=== PATIENT | female | born 1970 | race Caucasian/White ===

== ENCOUNTER 2016-09-04 21:01 | Observation (INO) ==
[2016-09-04] MEDS ORDERED: ONDANSETRON 4 MG/2 ML VIAL IV STA (22:20)
[2016-09-04] MEDS ORDERED: ALUM/MAG/SIMETH/LIDO VISC 1:1 30 ML BOTTLE PO STA (22:20)
--- NOTE | 2016-09-04 22:25 | EKG Report ---
Stationary ECG Study [facility] ER Test Date: 09/04/2016 9:10:37 PM Pat Name: SENAIT SANCHEZ Department: Room: Gender: F Cytotechnologist: Latoya : 1970 Requested by: Joseph Cuenca Order Number: [id number] Shahram MD: LEI KEY Intervals [place] Rate: 92 P: 65 CA: 162 QRS: 62 QRSD: 80 T: 49 QT: 360 QTc: 409 Interpretive Statements SINUS RHYTHM WITH SINUS ARRHYTHMIA Electronically Signed On 09-05-16 10:40:34 CDT by LEI KEY [email or web address]
[2016-09-04 22:33] LABS: Basophils % 0.4 % (0.0-0.8); Eosinophils # 0.1 10*3/uL (0.0-0.87); Eosinophils % 1.1 % (0.00-10.9); Hematocrit 36.8 VOL% (35.7-47.0); Hemoglobin 12.6 GM/DL (12.0-16.0); Immature Granulocytes % 0.2 %; Immature Granulocytes Absolute 0.02 #; Lymphocytes # 3.1 10*3/uL (1.4-4.0); Lymphocytes % 34.8 % (21.3-54.2); Mean Corpuscular HGB Conc 34.2 GM/DL (32-36); Mean Corpuscular Hemoglobin 33 PG (27-34); Mean Corpuscular Volume 95.1 FL (87-102); Mean Platelet Volume 13.1 FL (9.6-12.0); Monocytes # 0.6 10*3/uL (0.11-0.8); Monocytes % 6.6 % (1.7-12.7); Neutrophils # 5.1 10*3/uL (1.4-7.4); Neutrophils % 56.9 % (38.7-73.9); Red Blood Count 3.87 MC/CUMM (3.8-5.5); Red Cell Distribution Width 12.2 % (9.3-17.3); White Blood Count 8.9 T/CUMM (4-12)
[2016-09-04 22:36] LABS: Platelet Count 10 T/CUMM (130-400)
[2016-09-04 22:38] LABS: Partial Thromboplastin Time 26.9 SECS (0-40)
--- NOTE | 2016-09-04 22:38 | XRay Report ---
History is chest pain Comparison 09/22/2011 The heart is normal in size. Hilar contours unchanged The lungs are clear. Impression: No acute pathology seen. PROCEDURE INTERPRETED AT [facility] DEPARTMENT OF RADIOLOGY Final Report Signed by: Dr. Francoise Hernandez
--- NOTE | 2016-09-04 22:44 | Emergency Department Note ---
Arrival - Arrival Chief Complaint: Chest Pain Stated Complaint: sob/chest pain ED Nursing Triage Note: pt states she has been having cp for 2 days and sob. thought it was heartburn but sob has worsened Mode of Arrival: Ambulatory Limitations: No Limitations Source: Patient Time Seen by Provider: 09/04/16 22:20 - History of Present Illness HPI Narrative: This 45-year-old white female presents with 2 days of persistent heartburn, belching, water brash, central chest pain, and in the last 24 hours increasing shortness of breath. The patient has long-standing severe heartburn but because of the shortness of breath she decided to have things evaluated. She has no known cardiac disease. Currently she is not short of breath and appears in no medical distress. Onset (ago): day(s) (Patient presents 2 days post onset of symptoms) Consistency: constant Severity: moderate Date of Last Menstrual Period: 07/2016 Allergies/Adverse Reactions: Allergies Allergy/AdvReac Type Severity Reaction Status Date / Time Penicillins Allergy Mild RASH Verified 03/23/16 22:37 Home Medications: Home Medications Medication Instructions Recorded Confirmed Type Oxycodone HCl/Acetaminophen 1 each PO Q4-6H #25 tablet 03/24/16 03/25/16 Rx [Percocet 7.5-325 mg Tablet] Sulfameth/Trimeth 800-160 Tab 1 tablet PO BID #20 tablet 03/24/16 03/25/16 Rx [Bactrim DS Tab] cephALEXin [Keflex] 500 mg PO Q12HR #20 capsule 03/25/16 Rx Review of System - Review of System 12 point system: reviewed and no additional remarkable complaints except as stated - Review of System Constitutional: Present: as per HPI Respiratory: Present: as per HPI Cardiovascular: Present: as per HPI Gastrointestinal: Present: as per HPI Medical,Surgical,& Family Hx - Medical History Musculoskeletal: History of: Back/Neck Problems (chronic back pain) - Surgical History Reproductive Surgeries: Surgical HX of;: Tubal Ligation - Social History Smoking Status: Never smoker Frequency of Alcohol Use: None Type of Drug Use: None Exam Physical Examination: GENERAL: Well developed, well nourished white female in no acute distress. HEENT: Normocephalic. No trauma. Moist mucous membranes. EOMI. PERRLA. ENT NML NECK: Supple. No adenopathy. CARDIAC: Regular. No murmurs. Heart rate 89 CHEST: Clear to auscultation. No respiratory distress. O2 sat 99% ABDOMEN: Soft. Tender mid epigastrium. Active bowel sounds. EXTREMITIES: No trauma. Normal ROM. No pedal edema. SKIN: No diaphoresis. No rash. NEURO: Alert. Neurologic intact. No focal deficits. Vital Signs: Vital Signs Temperature 98.2 F 09/04/16 22:00 Pulse Rate 77 09/04/16 22:00 Respiratory Rate 16 09/04/16 22:00 Blood Pressure 117/82 09/04/16 22:00 O2 Sat by Pulse Oximetry 99 09/04/16 21:05 Course - Reevaluation(s) Reevaluation #1: Discussed with patient the problems with her platelet count. She states she has had a long-term problem with this but because of lack of health insurance has not been able to follow-up on this. She does not have any history of any significant bleeding episodes although this seems to be a problem for many years without a diagnosis. To this and we will admit for further evaluation treatment - Consultations Consultation #1: Discussed with the hospitalist service who will admit for further evaluation treatment. Results - Labs CBC & BMP: 09/04/16 21:29 09/04/16 21:29 Labs: I reviewed the lab and noted the grossly dangerously depressed platelet count. - Impressions EKG: Sinus rhythm at 92 with normal GA interval and QRS duration. Normal ST segments. Normal EKG. - Diagnostic Findings Procedure: Chest x-ray: image reviewed by me, report reviewed by me (No acute disease.) Disposition Clinical Impression: Thrombocytopenia, Reflux esophagitis Case discussed with: patient, patient's family Disposition: Still a Patient Condition: Stable Time of Disposition: 23:19
[2016-09-04 22:47] LABS: Alanine Aminotransferase 17 U/L (13-56); Albumin 4.1 G/DL (3.4-5.0); Alkaline Phosphatase 94 U/L (45-117); Aspartate Amino Transferase 12 U/L (0-37); Bilirubin,Total < 0.39 MG/DL (0.2-1.0); Blood Urea Nitrogen 11 MG/DL (7-18); Calcium 8.6 MG/DL (8.5-10.1); Glucose 95 MG/DL (74-106); Osmolality,Calculated 281.1 MOS/KG (273-304); Potassium 3.7 MMOL/L (3.5-5.1); Sodium 142 MMOL/L (136-145); Troponin I Only < 0.015 NG/ML (0.00-0.045)
[2016-09-04] MEDS ORDERED: ALUM/MAG/SIMETH/LIDO VISC 1:1 30 ML BOTTLE PO ONE (22:49)
[2016-09-04] MEDS ORDERED: ONDANSETRON 4 MG/2 ML VIAL ONE (22:49)
[2016-09-04 22:51] LABS: Platelet Estimate Decreased
[2016-09-05 00:35] LABS: Barbiturates Screen,Urine Negative (Negative); Benzodiazepines Screen,Urine Negative (Negative); Cannabinoid Screen,Urine Negative (Negative); Opiate Screen,Urine Positive (Negative); Phencyclidine Screen,Urine Negative (Negative)
[2016-09-05 00:39] LABS: Apearance,Urine CLOUDY (Clear); Bilirubin,Urine Negative (Negative); Blood, Urine Negative (Negative); Glucose,Urine (UA) Negative (Negative); Ketones,Urine Negative (Negative); Nitrite,Urine Negative (Negative); Protein,Urine Negative; RBC,Urine <1 /HPF (0-4); Squamous Epithelial Cell,Urine Few /HPF (0-10); Urine Color Yellow (Yellow); Urine Specific Gravity 1.004 (1.001-1.035); Urine Urobilinogen < 2.0 EU/DL (0.2-1.0); WBC,Urine 1 /HPF (0-6)
--- NOTE | 2016-09-05 01:10 | Hospitalist History & Physical ---
Assessment and Plan (1) Thrombocytopenia Status: Acute Current Visit: Yes (2) Chest pain Status: Acute Assessment and plan: Plan for this patient will be admission to the hospital. She will need to be on a monitored bed. I will draw serial cardiac enzymes. But did not feel that it is cardiac in nature at all. I will consult hematology for evaluation of this thrombocytopenia. And begin the workup. This is not a new occurrence apparently. She says she has been dealing with blood issues that for the past 3 years but really does not understand much about it. Current Visit: Yes History of Present Illness Chief complaint: Chest pain History of present illness: Ms. Clark is a 45 year old female with past medical history known for thrombocytopenia chronic pain degenerative disc disease insomnia migraines and anxiety presents to our hospital tonight. Patient's complaining about chest pain. She describes a sharp under her breasts. She states that she feels short of breath at the time. The pain more or less remains in her chest and she was thinking that she was having a heart attack. Patient reports she has been awake for 3 days. She upon questioning and we talk about thrombocytopenia she does admit that approximately 3 years ago she was diagnosed with platelet problem. She saw Dr. Leung on and off for 3 years but has lost her Medicaid. We checked her labs today in she has a platelet count of 10. I was consulted to admit the patient Home Medications Medication Instructions Recorded Confirmed Type Oxycodone HCl/Acetaminophen 1 each PO Q4-6H #25 tablet 03/24/16 03/25/16 Rx [Percocet 7.5-325 mg Tablet] Sulfameth/Trimeth 800-160 Tab 1 tablet PO BID #20 tablet 03/24/16 03/25/16 Rx [Bactrim DS Tab] cephALEXin [Keflex] 500 mg PO Q12HR #20 capsule 03/25/16 Rx Allergies Allergy/AdvReac Type Severity Reaction Status Date / Time Penicillins Allergy Mild RASH Verified 03/23/16 22:37 Medical,Surgical,& Family Hx - Medical History Musculoskeletal: History of: Back/Neck Problems (chronic back pain) Hematology: History of: Blood Disorders - Surgical History Reproductive Surgeries: Surgical HX of;: Tubal Ligation Orthopedic Surgeries: Surgical HX of;: Orthopedic Surgery - Social History Smoking Status: Never smoker Frequency of Alcohol Use: None Type of Drug Use: None 12 point system: reviewed and no additional remarkable complaints except as stated Exam - Constitutional Vitals: Period Temp Pulse Resp BP Sys/Gonzalez Pulse Ox Last 24 Hr 98.2 F-98.4 F 77-89 16-20 117-154/82-95 99 General appearance: normal weight - Head Head exam: Present: normal inspection - Eye Eye exam: Present: EOMI Pupils: Present: MALENA - ENT ENT exam: Present: normal exam - Neck Neck exam: Present: normal inspection - Respiratory Respiratory exam: Present: clear to auscultation bilaterally - Cardiovascular Cardiovascular exam: Present: regular rate and rhythm - GI/Abdominal GI/Abdominal exam: Present: normal bowel sounds - Extremities Exam Extremities exam: Present: normal inspection - Back Exam Back exam: Present: normal inspection - Neurological Exam Neurological exam: Present: alert - Psychiatric Psychiatric exam: Present: normal affect - Skin Skin exam: Present: other (Some bruising appreciated) Results - Labs CBC & BMP: 09/04/16 21:29 09/04/16 21:29
[2016-09-05] MEDS ORDERED: ONDANSETRON 4 MG/2 ML VIAL IV PRN (01:21)
[2016-09-05] MEDS ORDERED: ZALEPLON 5 MG CAPSULE PO PRN (01:21)
[2016-09-05] MEDS: oxyCODONE/ACETAMINOPHEN 5-325 MG TABLET PO PRN ×2 (02:45→08:32)
--- NOTE | 2016-09-05 07:21 | Ultrasound Report ---
US abdomen Indication: Thrombocytopenia. ULTRASOUND ABDOMEN, COMPLETE Comparison: None Findings: Liver: Normal size and smooth contour. No focal mass. Gallbladder: Unremarkable Common bile duct: 4 mm Aorta: No aneurysm IVC: Widely patent Spleen: Minimally enlarged, volume 462 cc. No focal lesion. Pancreas: Unremarkable Right kidney: 12.8 cm length. No mass, cyst, calcification or obstruction Left kidney: 11.2 cm length. No mass, cyst, calcification or obstruction Impression: Mild splenomegaly. PROCEDURE INTERPRETED AT [facility] DEPARTMENT OF RADIOLOGY Final Report Signed by: All Blackmon M.D.
[2016-09-05 07:39] LABS: Albumin 3.6 G/DL (3.4-5.0); Bilirubin,Total 0.9 MG/DL (0.2-1.0); Calcium 8.5 MG/DL (8.5-10.1); Potassium 3.7 MMOL/L (3.5-5.1); Total Protein 6.4 G/DL (6.4-8.3)
[2016-09-05 08:00] VITALS: BP 101/65
[2016-09-05 08:05] LABS: PT Patient Result 10.3 SECS
[2016-09-05 08:39] LABS: Basophils % 0.6 % (0.0-0.8); Eosinophils # 0.1 10*3/uL (0.0-0.87); Eosinophils % 1.7 % (0.00-10.9); Hemoglobin 12.3 GM/DL (12.0-16.0); Immature Granulocytes % 0.3 %; Immature Granulocytes Absolute 0.02 #; Lymphocytes # 2.6 10*3/uL (1.4-4.0); Lymphocytes % 35.7 % (21.3-54.2); Mean Corpuscular HGB Conc 34.2 GM/DL (32-36); Mean Corpuscular Hemoglobin 33 PG (27-34); Mean Corpuscular Volume 95.7 FL (87-102); Monocytes # 0.5 10*3/uL (0.11-0.8); Monocytes % 6.9 % (1.7-12.7); Neutrophils % 54.8 % (38.7-73.9); Red Blood Count 3.76 MC/CUMM (3.8-5.5); Red Cell Distribution Width 12.3 % (9.3-17.3); White Blood Count 7.2 T/CUMM (4-12)
[2016-09-05 08:57] LABS: Platelet Count 182 T/CUMM (130-400)
[2016-09-05] MEDS ORDERED: PANTOPRAZOLE 40 MG TABLET PO SCH (09:00)
--- NOTE | 2016-09-05 09:14 | Oncology Consult Note ---
History of Present Illness Chief complaint: Probable lab error History of present illness: Ms. Clark is a 45 year old female who is reported to have a platelet count of 10,000 yesterday. Early this morning a CBC was ordered and the results canceled. Subsequently, the patient has been found to have aPlatelet count of 182,000 with a hemoglobin of 12.3 and a white cell count of 7200. On questioning the patient she has had no recent respiratory tract infections. She has had no cough or sputum production. She has had no bone or muscle or joint aches or pains. The only 2 medications that she takes are Prilosec and narcotic pain medication. I am going to check the patient for petechiae, which she should have if her platelet count is actually 10,000. The lab is reporting that this patient's blood counts are not accurate because of clumping. She may need to be evaluated for cryoglobulins or cold agglutinins. On chemistry package, her globulins are 2.8 with an albumin of 3.6 and the rest of her comprehensive metabolic profile which was done on September 04 reveals normal liver enzymes and total bilirubin. I am doubtful that this is significant thrombocytopenia. It may be that she has been on medication that could do this as well. Please reconsult me if she actually has thrombocytopenia or other than this being lab error. At this point I have examined the patient. - Medical History Allergies: Penicillin Psychological: History of: Anxiety Disorders Gastrointestinal: History of: GERD Musculoskeletal: History of: Back/Neck Problems (chronic back pain) Hematology: History of: Blood Disorders - Surgical History Reproductive Surgeries: Surgical HX of;: Tubal Ligation Orthopedic Surgeries: Surgical HX of;: Orthopedic Surgery - Social History Smoking Status: Never smoker Frequency of Alcohol Use: None Type of Drug Use: None Family History: Negative for blood dyscrasias ROS Gen.: Eyes: No history of chronic disease, infections or visual loss. ENT: No history of chronic infections, epistaxis, chronic sore throat Lungs: No history of asthma, emphysema, hemoptysis, chronic pleurisy or long- term or chronic infections Cardiovascular: No history of angina, coronary artery disease, congestive heart failure, cardiovascular surgery or DVT/VTE GI: No history of upper or lower GI bleeding, melena, dysphagia, odynophagia, liver disease, gallbladder disease or pancreatic disease. : No history of kidney stones, chronic kidney infections or hematuria. Musculoskeletal: History of chronic back pain. Neurologic: No history of seizures, convulsions or paralysis. Psychiatric: History of anxiety. Lymphatic: No history of significant or long-term lymphadenopathy Hematologic: I did not elicit a history of bleeding disorders or blood dyscrasias or long-term elevation or depression white cell count or petechiae. Skin: No history of chronic skin infections or rashes or significant skin lesions. Physical examination: General: She is well-developed well-nourished and in no acute distress. Eyes: Lids and conjunctive are normal. ENT: Her trachea is midline and she has no neck masses her hearing is normal and her oral mucosa and pharynx are normal. Lungs: Breath sounds are normal without rubs, rales or rhonchi. There is symmetrical unlabored chest motion with respiration. Cardiovascular: Her heart rhythm is regular without murmur, gallop or rub. There is no jugular venous distention, clubbing, cyanosis or edema. Abdomen: She has no abdominal masses, organomegaly, distention, tenderness or ascites. Specifically I cannot palpate her spleen. Musculoskeletal: There is no focal muscle atrophy or bone or joint deformity. Neurologic: Cranial nerves II through XII are intact. There are no focal neurologic deficits. Skin: A thorough examination for any petechiae does not reveal any significant bruising or petechiae. Prilosec can occasionally cause thrombocytopenia. In addition, there is a remote possibility of collagen vascular disease. I doubt this however. I think that this is purely lab error. I am uncertain of why this patient's platelets are clumping. Cryoglobulins or cold agglutinins could possibly produce this or some other medication might. There was indication on the initial CBC that the patient had platelet clumping and I would suggest that in the future this should result in a repeat CBC in the emergency room before admitting the patient if the patient is not actively bleeding, does not have petechiae and splenomegaly is not palpable. Home Medications Medication Instructions Recorded Confirmed Type Oxycodone HCl/Acetaminophen 1 each PO Q4-6H #25 tablet 03/24/16 03/25/16 Rx [Percocet 7.5-325 mg Tablet] Cyclobenzaprine [Flexeril] 5 mg PO TID #30 tablet 09/05/16 Rx Ketorolac Tab [Toradol Tab] 10 mg PO Q4H PRN #30 tablet 09/05/16 Rx Zolpidem [Ambien] 10 mg PO BEDTIME #30 tablet 09/05/16 Rx Allergies Allergy/AdvReac Type Severity Reaction Status Date / Time Penicillins Allergy Mild RASH Verified 03/23/16 22:37 Medical,Surgical,& Family Hx - Medical History Psychological: History of: Anxiety Disorders Gastrointestinal: History of: GERD Musculoskeletal: History of: Back/Neck Problems (chronic back pain) Hematology: History of: Blood Disorders - Surgical History Reproductive Surgeries: Surgical HX of;: Tubal Ligation Orthopedic Surgeries: Surgical HX of;: Orthopedic Surgery - Social History Smoking Status: Never smoker Frequency of Alcohol Use: None Type of Drug Use: None Exam - Constitutional Vitals: Period Temp Pulse Resp BP Sys/Gonzalez Pulse Ox Last 24 Hr 97.1 F-98.3 F 69-87 16-18 101-137/65-84 97-99 Results - Labs CBC & BMP: 09/05/16 09:27 09/05/16 06:33 Quality Measures - VTE Contraindication to Pharmacological VTE Prophylaxis: Thrombocytopenia
[2016-09-05 09:35] LABS: Eosinophils 4 % (0-10); Hypochromasia 1+; Lymphocytes 37 % (20-55); Platelet Estimate Normal; Segmented Neutrophils 55 % (50-85); Total Cells Counted 100
[2016-09-05] MEDS ORDERED: KETOROLAC 30 MG/1 ML VIAL IV ONE (09:42)
[2016-09-05 09:44] LABS: Basophils # 0.1 10*3/uL (0.0-0.2); Basophils % 0.7 % (0.0-0.8); Eosinophils # 0.1 10*3/uL (0.0-0.87); Eosinophils % 1.9 % (0.00-10.9); Hematocrit 36.9 VOL% (35.7-47.0); Hemoglobin 12.6 GM/DL (12.0-16.0); Immature Granulocytes % 0.4 %; Immature Granulocytes Absolute 0.03 #; Lymphocytes % 26.8 % (21.3-54.2); Mean Corpuscular HGB Conc 34.1 GM/DL (32-36); Mean Corpuscular Hemoglobin 33 PG (27-34); Mean Corpuscular Volume 96.3 FL (87-102); Mean Platelet Volume 10.4 FL (9.6-12.0); Monocytes # 0.6 10*3/uL (0.11-0.8); Monocytes % 7.4 % (1.7-12.7); Neutrophils # 4.6 10*3/uL (1.4-7.4); Neutrophils % 62.8 % (38.7-73.9); Red Blood Count 3.83 MC/CUMM (3.8-5.5); Red Cell Distribution Width 12.5 % (9.3-17.3); White Blood Count 7.4 T/CUMM (4-12)
--- NOTE | 2016-09-05 09:46 | Discharge Summary ---
Hospital Course - Hospital Course Hospital Course: Ms. Clark was admitted to the hospital overnight for observation of chest pain and a workup of thrombocytopenia. Her initial platelet count was 10,000. Her repeat CBC shows a normal platelet count of 182,000. This has been confirmed with the lab. The first result be lab error secondary to clumping. At this time the patient is asymptomatic and does not have any petechial hemorrhaging or spontaneous bleeding. She presented to the emergency department initially for chest pain which is resolved. Troponins were negative. The patient is being discharged home to follow-up as an outpatient with her primary care physician. No further recommendations at this time. The patient was seen in consultation by Dr. Cohn. He recommended further testing if she truly had thrombocytopenia in the future. Patient was given a prescription for Ambien, Toradol, Flexeril upon discharge. - Time spent with patient Time with patient DS: Less than 30 minutes Diagnosis - Discharge Diagnosis (1) lab error Status: Acute (2) Thrombocytopenia Status: Ruled-out (3) Chest pain Status: Resolved (4) Chronic pain disorder Status: Chronic Discharge Plan - Discharge Data Disposition: Disch To Home/Self Care Condition at Discharge: Stable Discharge Diet: advance to your usual diet Activity: resume usual activities as tolerated Hygiene: no restrictions Weight Bearing at Discharge: full weight bearing Driving: no restrictions - Discharge Medications New Cyclobenzaprine [Flexeril] 5 mg PO TID #30 tablet Ketorolac Tab [Toradol Tab] 10 mg PO Q4H PRN #30 tablet PRN Reason: Pain Zolpidem [Ambien] 10 mg PO BEDTIME #30 tablet Continue Oxycodone HCl/Acetaminophen [Percocet 7.5-325 mg Tablet] 1 each PO Q4-6H #25 tablet Discontinued Sulfameth/Trimeth 800-160 Tab [Bactrim DS Tab] 1 tablet PO BID #20 tablet cephALEXin [Keflex] 500 mg PO Q12HR #20 capsule - Follow Up or Referral - Forms/Instructions Exam - Constitutional Vitals: Period Temp Pulse Resp BP Sys/Gonzalez Pulse Ox Last 24 Hr 97.1 F-98.3 F 69-87 16-18 101-137/65-84 97-99 General appearance: no acute distress Exam: Constitutional System: no distress. No tremulousness. Head: Normocephalic, atraumatic. Ears, Nose and Throat System: No pain or tenderness. No epistaxis or discharge Eyes System: Pupils equal, round, and reactive. Extraocular muscles intact. Neck: Supple, without adenopathy, No jugular venous distention. No thyromegaly, neck mass, or prior surgery apparent. Respiratory System: Chest clear to auscultation. Cardiovascular System: Heart with regular rate and rhythm. No murmur. GI System: Abdomen soft, nontender. Normo active bowel sounds present. Musculoskeletal System: limbs with no pedal edema. Full distal pulses. Neurological System: No discernable sensory deficit. No aphasia Psychiatric System: Conversation is rational Discharge Results Procedures and tests throughout hospitalization: Pending Orders 09/05/16 09:26 CBC [Comp Blood Count Auto Diff] Stat 09/05/16 09:27 Peripheral Blood Smear Profile Routine 09/05/16 09:42 Troponin I Only Stat Labs on day of discharge: Labs from last 24 hours 09/05/16 09/05/16 09/05/16 07:50 07:50 07:50 WBC 7.2 RBC 3.76 L Hgb 12.3 Hct 36.0 MCV 95.7 MCH 33 MCHC 34.2 RDW 12.3 Plt Count 182 D MPV 11.0 Neut % (Auto) 54.8 Lymph % (Auto) 35.7 Rooks % (Auto) 6.9 Eos % (Auto) 1.7 Baso % (Auto) 0.6 LUCs % Neut # (Auto) 4.0 Lymph # (Auto) 2.6 Rooks # (Auto) 0.5 Eos # (Auto) 0.1 Baso # (Auto) 0.0 LUCs # Total Counted 100 Immature Gran % 0.3 Nucleated RBC % 0.0 Immature Gran # 0.02 Segmented Neutrophils 55 Band Neutrophils Lymphocytes 37 Monocytes 4 Eosinophils 4 Basophils Metamyelocytes Myelocytes Promyelocytes Nucleated RBCs Nucleated RBCs # 0.00 Hypersegmented Neuts Vacuolated Neuts Atypical Lymphocytes Atypic/Reactive Lymphs Blast Cells Plasma Cells Smudge Cells Toxic Granulation Dohle Bodies Platelet Estimate Normal Giant Platelets Platelet Satelliting Immature Plt Fraction RBC Morphology Polychromasia Hypochromasia 1+ Poikilocytosis Basophilic Stippling Anisocytosis Microcytosis Macrocytosis Spherocytes Pappenheimer Bodies Sickle Cells Target Cells Tear Drop Cells Ovalocytes Oval Macrocytes Stomatocytes Helmet Cells Malloy-Sylvester Bodies Cony Cells Elliptocytes Acanthocytes (Spur) Rouleaux Schistocytes Morphology Comment INR 1.0 PT Patient/Control Mix 10.3 Fibrinogen 217 Sodium Potassium Chloride Carbon Dioxide Anion Gap BUN Creatinine GFR Calculation BUN/Creatinine Ratio Glucose Calculated Osmolality Calcium Total Bilirubin AST ALT Alkaline Phosphatase Total Protein Albumin Globulin Albumin/Globulin Ratio 09/05/16 09/05/16 06:33 06:33 WBC Cancelled RBC Cancelled Hgb Cancelled Hct Cancelled MCV Cancelled MCH Cancelled MCHC Cancelled RDW Cancelled Plt Count Cancelled MPV Cancelled Neut % (Auto) Cancelled Lymph % (Auto) Cancelled Rooks % (Auto) Cancelled Eos % (Auto) Cancelled Baso % (Auto) Cancelled LUCs % Cancelled Neut # (Auto) Cancelled Lymph # (Auto) Cancelled Rooks # (Auto) Cancelled Eos # (Auto) Cancelled Baso # (Auto) Cancelled LUCs # Cancelled Total Counted Cancelled Immature Gran % Cancelled Nucleated RBC % Cancelled Immature Gran # Cancelled Segmented Neutrophils Cancelled Band Neutrophils Cancelled Lymphocytes Cancelled Monocytes Cancelled Eosinophils Cancelled Basophils Cancelled Metamyelocytes Cancelled Myelocytes Cancelled Promyelocytes Cancelled Nucleated RBCs Cancelled Nucleated RBCs # Cancelled Hypersegmented Neuts Cancelled Vacuolated Neuts Cancelled Atypical Lymphocytes Cancelled Atypic/Reactive Lymphs Cancelled Blast Cells Cancelled Plasma Cells Cancelled Smudge Cells Cancelled Toxic Granulation Cancelled Dohle Bodies Cancelled Platelet Estimate Cancelled Giant Platelets Cancelled Platelet Satelliting Cancelled Immature Plt Fraction Cancelled RBC Morphology Cancelled Polychromasia Cancelled Hypochromasia Cancelled Poikilocytosis Cancelled Basophilic Stippling Cancelled Anisocytosis Cancelled Microcytosis Cancelled Macrocytosis Cancelled Spherocytes Cancelled Pappenheimer Bodies Cancelled Sickle Cells Cancelled Target Cells Cancelled Tear Drop Cells Cancelled Ovalocytes Cancelled Oval Macrocytes Cancelled Stomatocytes Cancelled Helmet Cells Cancelled Malloy-Sylvester Bodies Cancelled Cony Cells Cancelled Elliptocytes Cancelled Acanthocytes (Spur) Cancelled Rouleaux Cancelled Schistocytes Cancelled Morphology Comment Cancelled INR PT Patient/Control Mix Fibrinogen Sodium 143 Potassium 3.7 Chloride 107 Carbon Dioxide 26 Anion Gap 13.7 BUN 10 Creatinine 0.60 GFR Calculation 111 BUN/Creatinine Ratio 16.00 Glucose 83 Calculated Osmolality 282.0 Calcium 8.5 Total Bilirubin 0.90 AST 9 ALT 16 Alkaline Phosphatase 79 Total Protein 6.4 Albumin 3.6 Globulin 2.8 Albumin/Globulin Ratio 1.2 DS: Provider Date of admission: 09/05/16 01:21 Primary care physician: . No PCP Attending physician on admission: Petra Quiroga MD Consults: 09/05/16 02:47 Consult to Dietitian [CONS] Routine Reason for Dietitian: Dietary Consult Discharging clinician: Petra Quiroga MD Expected date of discharge: 09/05/16
[2016-09-05 09:59] LABS: Platelet Count 211 T/CUMM (130-400)
[2016-09-05 10:16] LABS: Eosinophils 2 % (0-10); Hypochromasia 1+; Lymphocytes 33 % (20-55); Segmented Neutrophils 57 % (50-85); Total Cells Counted 100
[2016-09-05 10:18] LABS: Platelet Estimate Normal
[2016-09-05 10:31] LABS: Mean Corpuscular Hemoglobin 33 PG (27-34)
[2016-09-05 10:32] LABS: Eosinophils # 0.1 10*3/uL (0.0-0.87)
[2016-09-05 10:35] LABS: Hemoglobin 12.6 GM/DL (12.0-16.0); Red Blood Count 3.83 MC/CUMM (3.8-5.5); White Blood Count 7.4 T/CUMM (4-12)
[2016-09-05 10:36] LABS: Hematocrit 36.9 VOL% (35.7-47.0); Mean Corpuscular HGB Conc 34.1 GM/DL (32-36); Mean Corpuscular Volume 96.3 FL (87-102); Red Cell Distribution Width 12.5 % (9.3-17.3)
[2016-09-05 10:37] LABS: Mean Platelet Volume 10.4 FL (9.6-12.0); Neutrophils % 62.8 % (38.7-73.9); Platelet Count 211 T/CUMM (130-400)
[2016-09-05 10:38] LABS: Basophils % 0.7 % (0.0-0.8); Eosinophils % 1.9 % (0.00-10.9); Lymphocytes % 26.8 % (21.3-54.2); Monocytes % 7.4 % (1.7-12.7)
[2016-09-05 10:39] LABS: Immature Granulocytes % 0.4 %; Monocytes # 0.6 10*3/uL (0.11-0.8); Neutrophils # 4.6 10*3/uL (1.4-7.4)
[2016-09-05 10:40] LABS: Basophils # 0.1 10*3/uL (0.0-0.2); Immature Granulocytes Absolute 0.03 #
[2016-09-05 10:52] LABS: Eosinophils 2 % (0-10); Lymphocytes 33 % (20-55); Segmented Neutrophils 57 % (50-85); Total Cells Counted 100
[2016-09-05 10:53] LABS: Hypochromasia 1+; Platelet Estimate Normal
== END 2016-09-05 11:30 | disposition home or self-care (01) | DRG 313 ==
LOC: N.ED 21:01 → N.EDINP 09-05 01:21 → INTOOBSV 09-05 01:21 → N.TELES 09-05 02:05
PROVIDERS: ADMIT Family Medicine; ATTEND Family Medicine

== ENCOUNTER 2018-04-01 15:31 | Observation (INO) ==
[2018-04-01] MEDS ORDERED: MORPHINE 4 MG/1 ML VIAL IV STA ×2 (17:06→19:37)
[2018-04-01] MEDS ORDERED: ALBUTEROL/IPRATROPIUM 3 ML NEB RESP TX STA (17:06)
[2018-04-01] MEDS ORDERED: ONDANSETRON 4 MG/2 ML VIAL IV STA (17:06)
[2018-04-01] MEDS ORDERED: ASPIRIN 325 MG TABLET PO STA (17:06)
[2018-04-01] MEDS ORDERED: methylPREDNISolone SOD SUC 125 MG/2 ML VIAL IV STA (17:06)
[2018-04-01] MEDS ORDERED: NITROGLYCERIN 2% OINT 1 INCH/GM PACK TOP STA (17:06)
[2018-04-01 17:31] LABS: INR 0.9; PT Patient Result 9.9 SECS
[2018-04-01 17:44] LABS: Alanine Aminotransferase 38 U/L (13-56); Albumin 4.2 G/DL (3.4-5.0); Alkaline Phosphatase 77 U/L (45-117); Aspartate Amino Transferase 27 U/L (0-37); Bilirubin,Total < 0.39 MG/DL (0.2-1.0); Blood Urea Nitrogen 9 MG/DL (7-18); Calcium 8.7 MG/DL (8.5-10.1); Glucose 113 MG/DL (74-106); Osmolality,Calculated 274.7 MOS/KG (273-304); Potassium 3.9 MMOL/L (3.5-5.1); Sodium 138 MMOL/L (136-145); Total Protein 8.1 G/DL (6.4-8.3); Troponin I < 0.015 NG/ML (0.00-0.045)
[2018-04-01 17:47] LABS: Basophils # 0.1 10*3/uL (0.0-0.2); Basophils % 0.6 % (0.0-0.8); Eosinophils % 0.5 % (0.00-10.9); Hematocrit 40.1 VOL% (35.7-47.0); Immature Granulocytes % 0.4 %; Immature Granulocytes Absolute 0.03 #; Lymphocytes # 1.9 10*3/uL (1.4-4.0); Lymphocytes % 24.5 % (21.3-54.2); Mean Corpuscular HGB Conc 34.9 GM/DL (32-36); Mean Corpuscular Hemoglobin 32 PG (27-34); Mean Platelet Volume 10.5 FL (9.6-12.0); Monocytes # 0.4 10*3/uL (0.11-0.8); Monocytes % 5.6 % (1.7-12.7); Neutrophils # 5.4 10*3/uL (1.4-7.4); Neutrophils % 68.4 % (38.7-73.9); Platelet Count 155 T/CUMM (130-400); Red Blood Count 4.36 MC/CUMM (3.8-5.5); Red Cell Distribution Width 11.4 % (9.3-17.3); White Blood Count 7.8 T/CUMM (4-12)
[2018-04-01 17:51] LABS: Platelet Estimate Normal
[2018-04-01 18:28] LABS: Apearance,Urine CLEAR (Clear); Bilirubin,Urine Negative (Negative); Blood, Urine Small mg/dL (Negative); Glucose,Urine (UA) Negative (Negative); Ketones,Urine Negative (Negative); Mucus,Urine Occasional /LPF (Occasional); Nitrite,Urine Negative (Negative); Protein,Urine Negative; RBC,Urine 1 /HPF (0-4); Squamous Epithelial Cell,Urine Occasional /HPF (0-10); Urine Color Straw (Yellow); Urine Specific Gravity 1.006 (1.001-1.035); Urine Urobilinogen < 2.0 EU/DL (0.2-1.0); WBC,Urine 1 /HPF (0-6)
[2018-04-01 18:36] LABS: Barbiturates Screen,Urine Negative (Negative); Benzodiazepines Screen,Urine Negative (Negative); Cannabinoid Screen,Urine Negative (Negative); Opiate Screen,Urine Positive (Negative); Phencyclidine Screen,Urine Negative (Negative)
[2018-04-01] MEDS ORDERED: DOCUSATE SODIUM 100 MG CAPSULE PO PRN (20:23)
[2018-04-01] MEDS ORDERED: ZALEPLON 5 MG CAPSULE PO PRN (20:23)
[2018-04-01] MEDS ORDERED: ENOXAPARIN 40 MG/0.4 ML SYRINGE SUBCUT SCH (21:00)
[2018-04-02 01:46] LABS: Basophils % 0.1 % (0.0-0.8); Hematocrit 38.7 VOL% (35.7-47.0); Hemoglobin 13.3 GM/DL (12.0-16.0); Immature Granulocytes % 0.3 %; Immature Granulocytes Absolute 0.03 #; Lymphocytes # 0.7 10*3/uL (1.4-4.0); Lymphocytes % 6.9 % (21.3-54.2); Mean Corpuscular HGB Conc 34.4 GM/DL (32-36); Mean Corpuscular Hemoglobin 32 PG (27-34); Mean Corpuscular Volume 94.2 FL (87-102); Mean Platelet Volume 11.3 FL (9.6-12.0); Monocytes # 0.1 10*3/uL (0.11-0.8); Monocytes % 0.8 % (1.7-12.7); Neutrophils # 8.7 10*3/uL (1.4-7.4); Neutrophils % 91.9 % (38.7-73.9); Platelet Count 126 T/CUMM (130-400); Red Blood Count 4.11 MC/CUMM (3.8-5.5); Red Cell Distribution Width 11.6 % (9.3-17.3); White Blood Count 9.5 T/CUMM (4-12)
[2018-04-02] MEDS ORDERED: diphenhydrAMINE CAP 25 MG CAPSULE PO ONE (02:00)
[2018-04-02 02:07] LABS: Troponin I < 0.015 NG/ML (0.00-0.045)
[2018-04-02 02:14] LABS: Calcium 9.2 MG/DL (8.5-10.1); Osmolality,Calculated 277.7 MOS/KG (273-304); Potassium 4.2 MMOL/L (3.5-5.1); Risk Ratio 4.62; Thyroid Stimulating Hormone 0.142 uIU/ml (0.358-3.74); VLDL CHOLESTEROL 29.4 MG/DL
[2018-04-02 03:44] LABS: Eosinophils 1 % (0-10); Hypochromasia Slight; Lymphocytes 5 % (20-55); Platelet Estimate Decreased; Segmented Neutrophils 94 % (50-85); Total Cells Counted 100
[2018-04-02 06:59] LABS: Troponin I < 0.015 NG/ML (0.00-0.045)
[2018-04-02] MEDS ORDERED: MAGNESIUM SULF RIDER 4 GM in PREMIX 1 EACH IV PRN (07:29)
[2018-04-02] MEDS ORDERED: MAGNESIUM SULF RIDER 2 GM in PREMIX 1 EACH IV PRN (07:29)
[2018-04-02] MEDS ORDERED: ONDANSETRON 4 MG/2 ML VIAL IV PRN (07:52)
[2018-04-02] MEDS ORDERED: PANTOPRAZOLE 40 MG TABLET PO SCH (09:00)
[2018-04-02] MEDS ORDERED: ASPIRIN EC 325 MG TABLET PO SCH (09:00)
[2018-04-02 11:44] VITALS: BP 117/91
== END 2018-04-02 14:45 | disposition home or self-care (01) ==
LOC: UNDODISOB → N.EDINP 15:31 → N.ED 15:31 → N.2E 20:00 → UNDODISOB 04-02 14:37
PROVIDERS: ADMIT Internal Medicine; ATTEND Internal Medicine

== ENCOUNTER 2019-04-06 09:24 | Observation (INO) ==
[2019-04-06] MEDS ORDERED: ASPIRIN 325 MG TABLET PO STA (09:59)
[2019-04-06] MEDS ORDERED: ALUM/MAG/SIMETH/LIDO VISC 1:1 30 ML BOTTLE PO STA (09:59)
[2019-04-06 10:15] LABS: Basophils % 0.4 % (0.0-0.8); Eosinophils % 0.2 % (0.00-10.9); Hematocrit 42.2 VOL% (35.7-47.0); Hemoglobin 14.4 GM/DL (12.0-16.0); Immature Granulocytes % 0.4 %; Immature Granulocytes Absolute 0.04 #; Lymphocytes # 1.5 10*3/uL (1.4-4.0); Lymphocytes % 15.1 % (21.3-54.2); Mean Corpuscular HGB Conc 34.1 GM/DL (32-36); Mean Corpuscular Volume 93.8 FL (87-102); Mean Platelet Volume 12.3 FL (9.6-12.0); Monocytes % 5.4 % (1.7-12.7); Neutrophils % 78.5 % (38.7-73.9); Platelet Count 119 T/CUMM (130-400); Red Cell Distribution Width 11.6 % (9.3-17.3); White Blood Count 10.2 T/CUMM (4-12)
[2019-04-06 10:31] LABS: PT Patient Result 10.4 SECS (9.6-12.2); Partial Thromboplastin Time 21.4 SECS (20.8-36.0)
[2019-04-06 10:32] LABS: Albumin 4.2 G/DL (3.4-5.0); Bilirubin,Total 0.6 MG/DL (0.2-1.0); Calcium 8.8 MG/DL (8.5-10.1); Osmolality,Calculated 276.7 MOS/KG (273-304); Total Protein 7.6 G/DL (6.4-8.3)
[2019-04-06 10:51] LABS: Platelet Estimate Adequate
[2019-04-06 12:05] LABS: Apearance,Urine Hazy (Clear); Bilirubin,Urine Negative (Negative); Blood, Urine NEGATIVE (Negative); Glucose,Urine (UA) Negative (Negative); Ketones,Urine Negative (Negative); Mucus,Urine Many /LPF (Occasional); Nitrite,Urine Negative (Negative); Protein,Urine 30 MG/DL; RBC,Urine 3 /HPF (0-4); Squamous Epithelial Cell,Urine Occasional /HPF (0-10); Urine Color Yellow (Yellow); WBC,Urine 1 /HPF (0-6)
[2019-04-06 12:06] LABS: Urine Urobilinogen 0.2 EU/DL (0.2-1.0)
[2019-04-06 12:09] LABS: Barbiturates Screen,Urine Negative (Negative); Benzodiazepines Screen,Urine Negative (Negative); Cannabinoid Screen,Urine Negative (Negative); Opiate Screen,Urine Positive (Negative); Phencyclidine Screen,Urine Negative (Negative)
[2019-04-06] MEDS ORDERED: ONDANSETRON 4 MG/2 ML VIAL IV PRN (15:51)
[2019-04-06] MEDS ORDERED: SODIUM CHLORIDE 0.45% 1,000 ML IV SCH (16:00)
[2019-04-06] MEDS ORDERED: busPIRone 5 MG TABLET PO PRN (16:01)
[2019-04-06] MEDS ORDERED: ZALEPLON 5 MG CAPSULE PO PRN (18:19)
[2019-04-06] MEDS: CARVEDILOL 3.125 MG TABLET PO SCH (20:33)
[2019-04-06] MEDS: DOCUSATE SODIUM 100 MG CAPSULE PO SCH (20:33)
[2019-04-06] MEDS: FAMOTIDINE 20 MG TABLET PO SCH (20:33)
[2019-04-06] MEDS ORDERED: ROSUVASTATIN 20 MG TABLET PO SCH (21:00)
[2019-04-07] MEDS: ACETAMINOPHEN 325 MG TABLET PO PRN ×2 (01:20→08:13)
[2019-04-07 06:06] LABS: Basophils % 0.6 % (0.0-0.8); Eosinophils # 0.1 10*3/uL (0.0-0.87); Hematocrit 38.4 VOL% (35.7-47.0); Hemoglobin 13.2 GM/DL (12.0-16.0); Immature Granulocytes % 0.2 %; Immature Granulocytes Absolute 0.01 #; Mean Corpuscular HGB Conc 34.4 GM/DL (32-36); Mean Corpuscular Volume 94.6 FL (87-102); Mean Platelet Volume 10.3 FL (9.6-12.0); Monocytes % 7.9 % (1.7-12.7); Neutrophils % 51.3 % (38.7-73.9); Platelet Count 166 T/CUMM (130-400); Red Blood Count 4.06 MC/CUMM (3.8-5.5); Red Cell Distribution Width 11.7 % (9.3-17.3); White Blood Count 5.2 T/CUMM (4-12)
[2019-04-07 06:28] LABS: Albumin 3.7 G/DL (3.4-5.0); Bilirubin,Total 1.7 MG/DL (0.2-1.0); Calcium 8.2 MG/DL (8.5-10.1); Osmolality,Calculated 274.7 MOS/KG (273-304); Risk Ratio 5.47; VLDL CHOLESTEROL 21.4 MG/DL
[2019-04-07] MEDS ORDERED: ASPIRIN EC 81 MG TABLET PO SCH (09:00)
[2019-04-07] MEDS ORDERED: PANTOPRAZOLE 40 MG TABLET PO SCH (09:00)
[2019-04-07 12:20] VITALS: BP 126/83
[2019-04-07] MEDS: CARVEDILOL 3.125 MG TABLET PO SCH (14:41)
[2019-04-07] MEDS: DOCUSATE SODIUM 100 MG CAPSULE PO SCH (14:42)
[2019-04-07] MEDS: FAMOTIDINE 20 MG TABLET PO SCH (14:42)
== END 2019-04-07 15:50 | disposition home or self-care (01) ==
LOC: N.EDINP 09:24 → N.ED 09:24 → SUATTDRO 14:12 → N.EDINP 15:12 → N.2W 15:34
PROVIDERS: ADMIT Internal Medicine Nephrology; ATTEND Internal Medicine